=== PATIENT | male | born 1990 | race Caucasian/White ===

== ENCOUNTER 2018-12-27 01:49 | Outpatient (CLI) | payer MEDICAID, SELFPAY ==
[2018-12-27 12:35] LABS: HCT 45.5 % (40.0-50.0); HGB 15.7 g/dL (13.5-17.5); Mean Corp. HGB Concentration 34.5 g/dL (32.0-36.0); Mean Corpuscular Hemoglobin 30.3 pg (27.0-33.0); Mean Corpuscular Volume 87.8 fL (80-95); Mean Platelet Volume 9.6 fL (8.0-11.0); Platelet Count 293 x1000/uL (130-400); RBC 5.18 m/cumm (4.50-6.00); RBC Distribution Width 12.2 % (11.8-14.1); White Blood Cell Count 5.96 k/cumm (4.4-10.8)
[2018-12-27 13:32] LABS: TSH (W/Ref FT4) 0.88 uIU/mL (0.358-3.74)
[2018-12-30 15:19] LABS: Testosterone, Free 9.24 ng/dL (5.05-19.8); Testosterone, Total 385 ng/dL (240-950)
== END 2018-12-27 02:09 ==
PROVIDERS: PCP Nurse Practitioner Adult Health; Visit Provider Nurse Practitioner Adult Health
DX: R53.83 Other fatigue (principal); F52.4 Premature ejaculation
CPT/HCPCS: 36415; 84402; 84403; 85027; 84443